=== PATIENT | female | born 1945 | race Caucasian/White ===

== ENCOUNTER → 2018-04-24 12:08 | Outpatient (CLI) | payer MEDICARE, SELFPAY ==
[2018-04-24 12:51] LABS: Add Manual Diff / Slide Review NO; Basophils Percent Auto 0.7 % (0-2); Eosinophils Percent Auto 1.3 % (2-4); Hematocrit 41.6 % (36-46); Hemoglobin 14.1 g/dL (12.0-16.0); Lymphocytes Percent Auto 19.5 % (25-40); Mean Corpuscular HGB Conc 33.9 % (30-36); Mean Corpuscular Hemoglobin 29.4 PG (26-34); Mean Corpuscular Volume 86.7 fL (80-100); Monocytes Percent Auto 4.2 % (3-14); Neutrophils Absolute Auto 7500 /uL (3000-5900); Neutrophils Percent Auto 74.3 % (50-75); Platelet Count 320 X10^3/uL (150-400); Red Blood Cell Count 4.79 X10^6/uL (4.0-5.2); Red Cell Distribution Width 14.2 % (11.6-14.8); White Blood Cell Count 10.1 X10^3/uL (4.5-11.0)
[2018-04-24 13:13] LABS: B Type Natriuretic Peptide < 100.0 (<100)
[2018-04-24 13:20] LABS: Alanine Aminotransferase 24 IU/L (9-52); Albumin 4.3 g/dL (3.5-5.0); Albumin Globulin Ratio 1.5 (1.0-2.8); Alkaline Phosphatase 67 U/L (38-126); Aspartate Aminotransferase 21 IU/L (14-36); BUN Creatinine Ratio 21.4 (6-22); Bilirubin Total 0.2 mg/dL (0.2-1.3); Blood Urea Nitrogen 15 mg/dL (7-17); Calcium 9.3 mg/dL (8.4-10.2); Carbon Dioxide 25 mmol/L (22-32); Chloride 104 mmol/L (98-107); Creatine Kinase 25 U/L (30-135); Estimated Glomerular Filt Rate > 60.0 mL/min (>60); Globulin 2.8 g/dL (1.7-4.1); Glucose 108 mg/dL (80-110); HEMOLYSIS < 15 (0-50); Lipase 224 U/L (23-300); Potassium 4.1 mmol/L (3.4-5.1); Sodium 141 mmol/L (137-145); Total Protein 7.1 g/dL (6.3-8.2)
[2018-04-24 13:34] LABS: Troponin I < 0.012 ng/mL (0.01-0.034)
[2018-04-24 14:02] LABS: TSH w/ Reflex to FT4 2.04 uIU/mL (0.47-4.68)
== END ==
PROVIDERS: Visit Provider Physician Assistant
DX: R10.9 Unspecified abdominal pain (principal)
CPT/HCPCS: 36415; 80053; 82550; 83690; 83880; 84443; 84484; 85025

== ENCOUNTER → 2018-05-16 09:03 | Outpatient (CLI) | payer MEDICARE, SELFPAY ==
[2018-05-16 10:21] LABS: Add Manual Diff / Slide Review NO; Basophils Percent Auto 0.8 % (0-2); Eosinophils Percent Auto 1.9 % (2-4); Hematocrit 44.1 % (36-46); Hemoglobin 14.5 g/dL (12.0-16.0); Lymphocytes Percent Auto 29.2 % (25-40); Mean Corpuscular HGB Conc 32.9 % (30-36); Mean Corpuscular Hemoglobin 28.9 PG (26-34); Mean Corpuscular Volume 87.8 fL (80-100); Monocytes Percent Auto 5.8 % (3-14); Neutrophils Absolute Auto 4300 /uL (3000-5900); Neutrophils Percent Auto 62.3 % (50-75); Platelet Count 265 X10^3/uL (150-400); Red Blood Cell Count 5.02 X10^6/uL (4.0-5.2); Red Cell Distribution Width 14.1 % (11.6-14.8); White Blood Cell Count 6.9 X10^3/uL (4.5-11.0)
[2018-05-16 10:56] LABS: Alanine Aminotransferase 24 IU/L (9-52); Albumin 4.3 g/dL (3.5-5.0); Albumin Globulin Ratio 1.6 (1.0-2.8); Alkaline Phosphatase 67 U/L (38-126); Aspartate Aminotransferase 19 IU/L (14-36); BUN Creatinine Ratio 21.4 (6-22); Bilirubin Total 0.5 mg/dL (0.2-1.3); Blood Urea Nitrogen 15 mg/dL (7-17); Calcium 9.7 mg/dL (8.4-10.2); Carbon Dioxide 27 mmol/L (22-32); Chloride 104 mmol/L (98-107); Cholesterol 224 mg/dL (140-199); Estimated Glomerular Filt Rate > 60.0 mL/min (>60); Globulin 2.7 g/dL (1.7-4.1); Glucose 96 mg/dL (80-110); HDL Cholesterol 79 mg/dL (40-60); HEMOLYSIS < 15 (0-50); LDL Cholesterol Calculated 126 mg/dL (<100); Lipase 212 U/L (23-300); Potassium 4.5 mmol/L (3.4-5.1); Sodium 144 mmol/L (137-145); Triglycerides 94 mg/dL (35-150)
== END ==
PROVIDERS: PCP Student in an Organized Health Care Education/Training Program; Visit Provider Internal Medicine Cardiovascular Disease
DX: R07.89 Other chest pain (principal)
CPT/HCPCS: 36415; 80053; 80061; 83690; 85025

== ENCOUNTER 2022-07-21 09:48 | Observation (INO) | payer MEDICARE, SELFPAY ==
[2022-07-21] VITALS (31 sets, daily range): BP systolic 143–206; BP diastolic 63–100; PULSE 76–97; RESP 15–43; TEMP 36.2–36.7; O2SAT 88–98; BMI 23.9; BMI 24.2
--- NOTE | 2022-07-21 09:58 | DI.RAD.S_ITS ---
PROCEDURE: XR CHEST 1V INDICATIONS: Shortness of breath TECHNIQUE: One view of the chest was acquired. COMPARISON: None. FINDINGS: Surgical changes and devices: None. Lungs and pleura: Interstitial pulmonary edema. Minimal right pleural effusion. Mediastinum: Mediastinal contours appear normal. Heart size is normal. Bones and chest wall: No suspicious bony lesions. Overlying soft tissues appear unremarkable. IMPRESSION: Congestive heart failure Dictated by: Simon Craig M.D. on 07/21/2022 at 10:44 Approved by: Simon Craig M.D. on 07/21/2022 at 10:44
[2022-07-21 10:12] LABS: Add Manual Diff / Slide Review NO; Basophils Absolute Auto 100 /uL (0-100); Basophils Percent Auto 0.8 % (0-2); Eosinophils Absolute Auto 100 /uL (0-450); Eosinophils Percent Auto 1.4 % (2-4); Hematocrit 40.8 % (36-46); Hemoglobin 13.1 g/dL (12.0-16.0); Lymphocytes Absolute Auto 1200 /uL (1100-4500); Lymphocytes Percent Auto 18.5 % (25-40); Mean Corpuscular HGB Conc 32.1 % (30-36); Mean Corpuscular Hemoglobin 27.6 PG (26-34); Mean Corpuscular Volume 86.2 fL (80-100); Monocytes Absolute Auto 400 /uL (0-900); Monocytes Percent Auto 6.7 % (3-14); Neutrophils Absolute Auto 4600 /uL (1500-7000); Neutrophils Percent Auto 72.6 % (50-75); Platelet Count 228 X10^3/uL (150-400); Red Blood Cell Count 4.74 X10^6/uL (4.0-5.2); Red Cell Distribution Width 14.1 % (11.6-14.8); White Blood Cell Count 6.3 X10^3/uL (4.5-11.0)
[2022-07-21 10:20] LABS: INR 1.1 (0.9-1.3); Prothrombin Time 12.5 SECONDS (10.1-12.7)
--- NOTE | 2022-07-21 10:22 | ED.SOB ---
HPI - SOB/Dyspnea General Chief Complaint: Shortness of Breath/Dyspnea Stated Complaint: trouble breathing getting worse T-2 Time Seen by Provider: 07/21/22 10:14 Source: patient Mode of arrival: Ambulatory Limitations: no limitations History of Present Illness HPI Narrative: Patient here with complains 3 months of dyspnea and getting worse. No exertional chest pain. Does have discomfort at times left long and then right long. Has had a dry cough. Patient smokes 3 cigarettes a day. Has history of childhood asthma. Has not seen Dr. De Leon, primary care in 5 years. Did not get into the office. Does not do breathing treatments. Does have exertional dyspnea. No fever no nausea vomiting or diarrhea. No prior history of heart attack strokes or diabetes. No history of congestive heart failure. Complains of limb edema or swelling but no weight gain Related Data Previous Rx's Medication Instructions Recorded aspirin 81 mg tablet,delayed 81 mg PO DAILY 30 days #30 tabs 07/22/22 release atorvastatin 40 mg tablet 40 mg PO BEDTIME 30 days #90 tabs 07/27/22 furosemide 20 mg tablet 20 mg PO BID #180 tabs 07/27/22 lisinopril 10 mg tablet 10 mg PO DAILY blood pressure #90 07/27/22 tabs metoprolol succinate 25 mg 25 mg PO DAILY #90 tabs 07/27/22 tablet,extended release 24 hr Allergies Allergy/AdvReac Type Severity Reaction Status Date / Time Penicillins [PENICILLINS] Allergy Unknown Verified 07/27/22 10:11 shellfish derived Allergy Unknown Verified 07/27/22 10:11 Review of Systems Review of Systems Narrative: GENERAL: negative chills, fatigue, malaise, fever, sweats. HEENT: negative sinus pain, ear pain, sore throat RESPIRATORY: Positive dyspnea, cough CARDIOVASCULAR: negative chest pain, palpitations GASTROINTESTINAL: negative nausea, vomiting, abdominal pain : negative dysuria, frequency, hematuria MUSCULOSKELETAL: negative muscle or bony pain SKIN: negative rash, skin lesions NEUROLOGIC: negative weakness, numbness ROS Unobtainable: All systems reviewed & are unremarkable except as noted in HPI and below Patient History Medical History (Updated 07/27/22 @ 11:09 by Haydee Guadarrama DO) Asthma Tobacco dependence Social History household members: spouse Smoking Status: Current every day smoker alcohol intake: current Smoking Status: Current every day smoker alcohol intake frequency: holidays/special occasions only Substance Use Type: does not use Exam Narrative Exam Narrative: GENERAL: in no distress, not toxic not dyspneic HEAD: Normocephalic. EYES: Pupils equal round ENT: Mucous membranes moist. NECK: Trachea midline. CARDIOVASCULAR: Regular rate and rhythm without murmurs RESPIRATORY: Speaking full sentences, no respiratory distress, there is diminished bilateral lung sounds with basilar rhonchi, no rales, no wheezing. GASTROINTESTINAL: Abdomen soft, non-tender EXTREMITIES: No gross deformities. No calf tenderness, there is 2+ bilateral ankle edema BACK: No flank tenderness. NEURO: AOx4. SKIN: Warm and dry PSYCH: Not anxious, is cooperative Initial Vital Signs Initial Vital Signs: Vital Signs Temperature 97.1 F L 07/21/22 09:52 Pulse Rate 97 H 07/21/22 09:52 Respiratory Rate 21 07/21/22 09:52 Blood Pressure 177/100 H 07/21/22 09:52 Pulse Oximetry 93 07/21/22 09:52 Oxygen Delivery Method 07/21/22 09:52 Course Orders Ordered: Discontinued Medications Acetaminophen (Acetaminophen 325 Mg Tablet) 650 mg PO Q6H PRN PRN Reason: Fever/Mild Pain (1-3) Albuterol/Ipratropium (Albuterol/Ipratropium 3 Ml Ampul) 3 ml INH NOW ONE Stop: 07/21/22 10:22 Last Admin: 07/21/22 10:24 Dose: 3 ml Documented By: DARYL Cyclobenzaprine HCl (Cyclobenzaprine 10 Mg Tablet) 10 mg PO Q8HR PRN PRN Reason: Spasms Enoxaparin Sodium (Enoxaparin 40 Mg/0.4 Ml Syringe) 40 mg SUBCUT DAILY [facility] Last Admin: 07/22/22 09:22 Dose: 40 mg Documented By: JASMINE Furosemide (Furosemide 40 Mg/4 Ml Vial) 40 mg IV NOW ONE Stop: 07/21/22 11:22 Last Admin: 07/21/22 11:49 Dose: 40 mg Documented By: DARYL Furosemide (Furosemide 40 Mg/4 Ml Vial) 40 mg IV NOW ONE Stop: 07/21/22 21:01 Last Admin: 07/21/22 20:59 Dose: 40 mg Documented By: Furosemide (Furosemide 40 Mg Tablet) 40 mg PO DAILY [facility] Furosemide (Furosemide 40 Mg/4 Ml Vial) 40 mg IV DAILY [facility] Last Admin: 07/22/22 09:22 Dose: 40 mg Documented By: JASMINE Lisinopril (Lisinopril 5 Mg Tablet) 5 mg PO DAILY [facility] Magnesium Chloride (Magnesium Chloride 64 Mg Tablet) 64 mg PO DAILY [facility] Last Admin: 07/22/22 10:48 Dose: 64 mg Documented By: JASMINE Magnesium Hydroxide (Magnesium Hydroxide 30 Ml Udc) 30 ml PO DAILY PRN PRN Reason: Constipation Methylprednisolone (Methylprednisolone 125 Mg/2 Ml Vial) 125 mg IV NOW ONE Stop: 07/21/22 10:22 Last Admin: 07/21/22 10:24 Dose: 125 mg Documented By: DARYL Metoprolol Succinate (Metoprolol Er 25 Mg Tablet) 25 mg PO DAILY [facility] Last Admin: 07/22/22 09:21 Dose: 25 mg Documented By: JASMINE Metoprolol Tartrate (Metoprolol Tartrate 5 Mg/5 Ml Inj) 5 mg IV Q15M PRN PRN Reason: Hypertension Stop: 07/21/22 21:31 Naloxone HCl (Naloxone 0.4 Mg/Ml Vial) 0.2 mg IV Q2MIN PRN PRN Reason: Opiate Reversal Nicotine (Nicotine 7 Mg Patch) 7 mg TOP DAILY PRN PRN Reason: nicotine withdrawal Potassium Chlor[facility] (Potassium [facility] 20 M[facility] Tab) [facility] Last Admin: 07/22/22 10:45 Dose: 20 meq Documented By: JASMINE Prednisone (Prednisone 20 Mg Tablet) 40 mg PO DAILY [facility] Stop: 07/26/22 08:59 Last Admin: 07/22/22 09:21 Dose: 40 mg Documented By: JASMINE Vital Signs Vital signs: Vital Signs - 8 hr 07/21/22 09:52 07/21/22 09:54 07/21/22 09:56 Temperature 97.1 F L Pulse Rate 97 H 96 H Respiratory Rate 21 28 H Blood Pressure 177/100 H Pulse Oximetry 93 89 L 93 Oxygen Delivery Method Room Air Room Air Room Air 07/21/22 09:56 07/21/22 10:00 07/21/22 10:05 Temperature Pulse Rate 92 H 86 Respiratory Rate 15 16 Blood Pressure 177/100 H Pulse Oximetry 97 98 Oxygen Delivery Method 07/21/22 10:05 07/21/22 10:15 07/21/22 10:24 Temperature Pulse Rate 83 80 Respiratory Rate 28 H 20 Blood Pressure 206/86 H Pulse Oximetry 98 95 Oxygen Delivery Method Room Air Room Air 07/21/22 10:30 07/21/22 10:30 07/21/22 10:45 Temperature Pulse Rate 83 79 Respiratory Rate 37 H 23 Blood Pressure 188/84 H Pulse Oximetry 97 96 Oxygen Delivery Method 07/21/22 11:00 07/21/22 11:00 07/21/22 11:15 Temperature Pulse Rate 77 76 Respiratory Rate 26 H 23 Blood Pressure 172/74 H Pulse Oximetry 94 94 Oxygen Delivery Method 07/21/22 11:30 07/21/22 11:30 07/21/22 11:45 Temperature Pulse Rate 84 82 Respiratory Rate 29 H 23 Blood Pressure 182/84 H Pulse Oximetry 96 96 Oxygen Delivery Method Room Air 07/21/22 12:00 07/21/22 12:00 07/21/22 12:15 Temperature Pulse Rate 83 86 Respiratory Rate 34 H 22 Blood Pressure 175/81 H Pulse Oximetry 95 94 Oxygen Delivery Method 07/21/22 12:30 07/21/22 12:30 07/21/22 12:45 Temperature Pulse Rate 86 86 Respiratory Rate 43 H 20 Blood Pressure 177/80 H Pulse Oximetry 95 95 Oxygen Delivery Method Room Air 07/21/22 13:00 07/21/22 13:00 07/21/22 13:15 Temperature Pulse Rate 86 85 Respiratory Rate Blood Pressure 194/79 H Pulse Oximetry 93 92 Oxygen Delivery Method 07/21/22 13:16 07/21/22 13:16 07/21/22 13:30 Temperature Pulse Rate 86 Respiratory Rate Blood Pressure 183/72 H 152/70 H Pulse Oximetry 92 Oxygen Delivery Method 07/21/22 13:30 Temperature Pulse Rate 83 Respiratory Rate 26 H Blood Pressure Pulse Oximetry 91 Oxygen Delivery Method MDM - SOB/Dyspnea Lab Data 07/21/22 10:00 07/21/22 10:00 Labs: Lab Results 07/21/22 07/21/22 07/21/22 Range/Units 09:58 10:00 10:00 WBC 6.3 (4.5-11.0) X10^3/uL RBC 4.74 (4.0-5.2) X10^6/uL Hgb 13.1 (12.0-16.0) g/dL Hct 40.8 (36-46) % MCV 86.2 (80-100) fL MCH 27.6 (26-34) PG MCHC 32.1 (30-36) % RDW 14.1 (11.6-14.8) % Plt Count 228 (150-400) X10^3/uL Neut % (Auto) 72.6 (50-75) % Lymph % (Auto) 18.5 L (25-40) % [place] % (Auto) 6.7 (3-14) % Eos % (Auto) 1.4 L (2-4) % Baso % (Auto) 0.8 (0-2) % Neut # (Auto) 4600 (0283-0719) /uL Lymph # (Auto) 1200 (1123-9522) /uL [place] # (Auto) 400 (0-900) /uL Eos # (Auto) 100 (0-450) /uL Baso # (Auto) 100 (0-100) /uL PT 12.5 (10.1-12.7) SECONDS INR 1.1 (0.9-1.3) Sodium (137-145) mmol/L Potassium (3.4-5.1) mmol/L Chloride (98-107) mmol/L Carbon Dioxide (22-32) mmol/L BUN (7-17) mg/dL Creatinine (0.52-1.04) mg/dL Estimated GFR (>60) mL/min BUN/Creatinine Ratio (6-22) Glucose (80-110) mg/dL Lactate (0.7-2.1) mmol/L Calcium (8.4-10.2) mg/dL Total Bilirubin (0.2-1.3) mg/dL AST (14-36) IU/L ALT (<35) IU/L Alkaline Phosphatase (38-126) U/L Troponin I (0.01-0.034) ng/mL NT-Pro-B Natriuret Pep (<450) pg/mL Total Protein (6.3-8.2) g/dL Albumin (3.5-5.0) g/dL Globulin (1.7-4.1) g/dL Albumin/Globulin Ratio (1.0-2.8) SARS-CoV-2 (PCR) Negative (Negative) Influenza A (RT-PCR) Flu a negative (NEGATIVE) Influenza B (RT-PCR) Flu b negative (NEGATIVE) RSV (PCR) Negative (Negative) 07/21/22 07/21/22 07/21/22 Range/Units 10:00 10:00 12:30 WBC (4.5-11.0) X10^3/uL RBC (4.0-5.2) X10^6/uL Hgb (12.0-16.0) g/dL Hct (36-46) % MCV (80-100) fL MCH (26-34) PG MCHC (30-36) % RDW (11.6-14.8) % Plt Count (150-400) X10^3/uL Neut % (Auto) (50-75) % Lymph % (Auto) (25-40) % [place] % (Auto) (3-14) % Eos % (Auto) (2-4) % Baso % (Auto) (0-2) % Neut # (Auto) (6719-5076) /uL Lymph # (Auto) (6843-2490) /uL [place] # (Auto) (0-900) /uL Eos # (Auto) (0-450) /uL Baso # (Auto) (0-100) /uL PT (10.1-12.7) SECONDS INR (0.9-1.3) Sodium 138 (137-145) mmol/L Potassium 4.3 (3.4-5.1) mmol/L Chloride 100 (98-107) mmol/L Carbon Dioxide 29 (22-32) mmol/L BUN 18 H (7-17) mg/dL Creatinine 0.85 (0.52-1.04) mg/dL Estimated GFR > 60 (>60) mL/min BUN/Creatinine Ratio 21.2 (6-22) Glucose 101 (80-110) mg/dL Lactate 2.3 H 2.0 (0.7-2.1) mmol/L Calcium 8.7 (8.4-10.2) mg/dL Total Bilirubin 0.6 (0.2-1.3) mg/dL AST 26 (14-36) IU/L ALT 24 (<35) IU/L Alkaline Phosphatase 80 (38-126) U/L Troponin I 0.014 (0.01-0.034) ng/mL NT-Pro-B Natriuret Pep 1296 H (<450) pg/mL Total Protein 7.4 (6.3-8.2) g/dL Albumin 4.1 (3.5-5.0) g/dL Globulin 3.3 (1.7-4.1) g/dL Albumin/Globulin Ratio 1.2 (1.0-2.8) SARS-CoV-2 (PCR) (Negative) Influenza A (RT-PCR) (NEGATIVE) Influenza B (RT-PCR) (NEGATIVE) RSV (PCR) (Negative) MDM Narrative Medical decision making narrative: Patient here with complains 3 months of dyspnea and getting worse. No exertional chest pain. Does have discomfort at times left long and then right long. Has had a dry cough. Patient smokes 3 cigarettes a day. Has history of childhood asthma. Has not seen Dr. De Leon, primary care in 5 years. Did not get into the office. Does not do breathing treatments. Does have exertional dyspnea. No fever no nausea vomiting or diarrhea. No prior history of heart attack strokes or diabetes. No history of congestive heart failure. Complaints of limb edema but no weight gain [facility] CC: Dyspnea Complicating co-morbidities: Smoker Data collected from: Patient and spouse Medical records reviewed: No previous visits for COPD exacerbation or dyspnea Differential considered: Includes but not limited to dyspnea/COPD/pneumonia/viral infection/CHF exacerbation/CA/non-STEMI Exam documented above, pertinent findings include: Diminished lung sounds/rhonchi Lab Test results independently reviewed as above. Pertinent findings: CBC no leukocytosis or anemia, troponin normal, BNP normal, sodium 138 AST 26 ALT 24 potassium 4.3 Independently reviewed EKG as above normal sinus rhythm rate [address] elevation or depression Imaging studies independently reviewed: Chest x-ray no acute process Consultations: 11:30 a.m., spoke with hospitalist agree for admit Treatments: DuoNeb/Solu-Medrol Lasix Re-evaluations: Reviewed results with patient and . No significant improvement with breathing treatment. Reviewed diagnosis likely CHF and they do agree for admit Discussion: Appropriate for admission for new onset CHF, requiring diuresis, patient is symptomatic. Reviewed with patient and agree for admit. Reviewed with hospitalist agree for admit. Diagnosis: New onset CHF Discharge Plan Departure Patient Disposition: Admitted as Observation Clinical Impression: New onset of congestive heart failure Admit Date/Time: 07/21/22 14:08 Admit Provider: José Luis Grijalva
[2022-07-21] MEDS: methylPREDNISolone 125 MG/2 ML VIAL IV (10:24)
[2022-07-21] MEDS: ALBUTEROL/IPRATROPIUM 3 ML AMPUL INH (10:24)
[2022-07-21 10:25] LABS: Alanine Aminotransferase 24 IU/L (<35); Albumin 4.1 g/dL (3.5-5.0); Albumin Globulin Ratio 1.2 (1.0-2.8); Alkaline Phosphatase 80 U/L (38-126); Aspartate Aminotransferase 26 IU/L (14-36); BUN Creatinine Ratio 21.2 (6-22); Bilirubin Total 0.6 mg/dL (0.2-1.3); Blood Urea Nitrogen 18 mg/dL (7-17); Calcium 8.7 mg/dL (8.4-10.2); Carbon Dioxide 29 mmol/L (22-32); Chloride 100 mmol/L (98-107); Estimated Glomerular Filt Rate > 60 mL/min (>60); Globulin 3.3 g/dL (1.7-4.1); Glucose 101 mg/dL (80-110); HEMOLYSIS < 15 (0-50); Potassium 4.3 mmol/L (3.4-5.1); Sodium 138 mmol/L (137-145); Total Protein 7.4 g/dL (6.3-8.2)
[2022-07-21 10:26] LABS: Lactate (Lactic Acid) 2.3 mmol/L (0.7-2.1)
[2022-07-21 10:37] LABS: NT-proBNP (BNP-Adult 18+) 9090 pg/mL (<450); Troponin I 0.014 ng/mL (0.01-0.034)
--- NOTE | 2022-07-21 10:41 | RT ---
pt [place] tx well, no distress noted and on room air.
[2022-07-21 10:42] LABS: Influenza A - CEPHEID Flu A NEGATIVE (NEGATIVE); Influenza B - CEPHEID Flu B NEGATIVE (NEGATIVE); Respiratory Syncytial Virus Negative (Negative)
[2022-07-21 10:44] LABS: COVID-19 CEPHEID 4-PLEX PCR Negative (Negative)
[2022-07-21] MEDS: FUROSEMIDE 40 MG/4 ML VIAL IV ×2 (11:49→20:59)
[2022-07-21 12:07] LABS: Reflexed Lactate in 2 Hours Y
--- NOTE | 2022-07-21 12:55 | DI.ECHO.S_ITS ---
[facility]---------+ [facility] +---------+ : : [address] : : : : [id number] : : : : Phone: [phone]+ Echocardiogram Report + + :Name: MAURI CORCORAN Study Date: 07/21/2022 Height: 63 in : :[facility] ReadingLocation: Weight: 135 lb : : Gender: Female BSA: 1.6 m2 : :: 1945 Age: 77 yrs BP: 165/72 mmHg: :Reason For Study: SHORTNESS OF BREATH : :Ordering Physician: YASMANY, : :BIMAL Performed By: Suzy Garduno : :Referring: BIMAL JADE : + + Interpretation Summary There is mild-moderate concentric left ventricular hypertrophy. The ejection fraction is estimated to be 25-30%. Grade II diastolic dysfunction. The left atrium is moderately dilated. The right ventricle is normal in size and function. No significant valvular abnormalities. Unable to estimate PASP. The ascending aorta is mildly enlarged, 3.9 cm. Borderline dilated abdominal aorta, 2.8 cm. Procedure: A two-dimensional transthoracic echocardiogram with color flow and Doppler was performed. The study quality was technically adequate. There is no prior echocardiogram noted for this patient. The patient was in sinus rhythm with heart rates between 79-87 bpm during the exam. Left Ventricle: The left ventricle is normal in size. There is mild-moderate concentric left ventricular hypertrophy. The ejection fraction is estimated to be 25-30%. Diastolic parameters suggest a pseudonormalization pattern, consistent with probable elevated filling pressures. Right Ventricle: The right ventricle is normal in size and function. Atria: The left atrium is moderately dilated. Right atrial size is normal. There is no Doppler evidence for an interatrial shunt. Mitral Valve: The mitral valve is normal. There is mild mitral annular calcification. There is trace mitral regurgitation. Aortic Valve: The aortic valve is trileaflet. The aortic valve opens well. There is no aortic valve stenosis. No aortic regurgitation is present. Tricuspid Valve: The tricuspid valve is normal in structure and function. There is a trace or physiologic amount of tricuspid regurgitation. Pulmonary artery pressures cannot be estimated because of the lack of a measurable TR jet velocity. Pulmonic Valve: The pulmonic valve leaflets are thin and pliable; valve motion is normal. There is mild pulmonic regurgitation. Great Vessels: The aortic root is normal size. The ascending aorta is mildly enlarged. Borderline dilated abdominal aorta. The inferior vena cava was not well visualized. Pericardium/ Pleura There is no pericardial effusion. There is no pleural effusion. MMode/2D Measurements & Calculations LVIDd: 4.5 cm LVOT diam: 2.0 cm LVIDs: 4.0 cm Ao root diam: 2.8 cm FS: 11.6 % asc Aorta Diam: 3.9 cm EPSS: 1.6 cm IVSd: 1.2 cm LVPWd: 1.3 cm LV bolton. diameter/BSA (cm/m^2): 2.8 LV sys. diameter/BSA (cm/m^2): 2.5 LA A2 area: 20.6 cm2 RA long axis: 4.5 cm LA A4 area: 22.4 cm2 RA area: 13.2 cm2 LA length (vol): 5.3 cm RA vol: 33.0 ml LA vol: 74.2 ml RA : 20.2 ml/m2 LA vol index: 45.4 ml/m2 IVC diam: 1.4 cm RVD1 (basal): 3.9 cm RVD2 (mid): 2.9 cm TAPSE: 2.2 cm Doppler Measurements & Calculations Ao V2 max: 109.5 cm/sec LVOT Max Theodore: 77.0 cm/sec Ao V2 mean: 76.4 cm/sec LV V1 max P.4 mmHg Ao max P.8 mmHg LV V1 VTI: 15.0 cm Ao mean P.6 mmHg CHONG(I,D): 2.1 cm2 Ao V2 VTI: 22.1 cm CHONG(V,D): 2.2 cm2 sev ratio: 0.68 CHONG indexed to BSA (cm^2/m^2): 1.3 MV E max theodore: 58.3 cm/sec PA V2 max: 73.1 cm/sec MV A max theodore: 108.4 cm/sec PA V2 mean: 48.1 cm/sec MV E/A: 0.54 PA mean P.1 mmHg Med Peak E' Theodore: 2.7 cm/sec PA pr(Accel): 37.9 mmHg E/E' med: 21.8 Lat Peak E' Theodore: 3.8 cm/sec E/E' lat: 15.4 E/e' average: 18.6 MV dec time: 0.20 sec [facility] 46.5 ml Reading Physician:03:58 PM
--- NOTE | 2022-07-21 14:30 | PM.HP.1 ---
History of Present Illness History of Present Illness Date Patient Seen: 07/21/22 Time Patient Seen: 14:00 Chief complaint: trouble breathing getting worse T-2 Narrative: Patient is 77-year-old female with history of asthma, long-term cigarette smoking presented to ED due to worsening dyspnea on exertion. Symptoms have been present for at least 6 months. She has progressive dyspnea to point where she now is out of breath walking a few feet. Notes loss of appetite. She has also noticed swelling in her ankles and sleeps with her head elevated. Denies recent chest pain. Back in 2018 she had a dobutamine echo stress test for evaluation of chest pains which patient states was normal. Patient is not aware of past history of elevated blood pressure. On ED presentation, her initial BP was 177 over 100, repeat BP 206/86, O2 sat 89-93% room air. BNP 9090, normal troponin. EKG personally reviewed and showed showed sinus rhythm, possible septal MN. chest x-ray personally reviewed and shows bilateral interstitial edema with small right pleural effusion. Patient has family history CAD. Paternal grandfather of MN in mid 70s. Father 74 of cardiovascular cause. Brother has had multiple coronary stents in his 60s. Patient has smoked 1/2 pack per day for close to 60 years, cut back to 3 cigarettes a day in the last 5 years. Patient History Medical History (Updated 07/21/22 @ 11:27 by Yon Kwon MD) Asthma Family & Social History Safety & Behavioral: Feels Safe in Current Yes Environment Been Physically Hurt or No Threatened By a Person Tobacco & Substance use: Smoking Status Current every day smoker alcohol intake frequency holiday/special occasion Substance Use Type does not use Meds Home Medications and Allergies Home Medications Medication Instructions Recorded Confirmed Type No Known Home Medications 07/21/22 07/21/22 History Allergies Allergy/AdvReac Type Severity Reaction Status Date / Time Penicillins [PENICILLINS] Allergy Unknown Verified 07/21/22 09:59 shellfish derived Allergy Unknown Verified 07/21/22 10:32 Review of Systems Review of Systems Narrative: Complete ROS otherwise negative Exam Vital Signs (past 8 hours): - 07/21/22 09:52 07/21/22 09:54 07/21/22 09:56 Temperature 97.1 F L Pulse Rate 97 H 96 H Respiratory Rate 21 28 H Blood Pressure 177/100 H Pulse Oximetry 93 89 L 93 Oxygen Delivery Method Room Air Room Air Room Air 07/21/22 09:56 07/21/22 10:00 07/21/22 10:05 Temperature Pulse Rate 92 H 86 Respiratory Rate 15 16 Blood Pressure 177/100 H Pulse Oximetry 97 98 Oxygen Delivery Method 07/21/22 10:05 07/21/22 10:15 07/21/22 10:24 Temperature Pulse Rate 83 80 Respiratory Rate 28 H 20 Blood Pressure 206/86 H Pulse Oximetry 98 95 Oxygen Delivery Method Room Air Room Air 07/21/22 10:30 07/21/22 10:30 07/21/22 10:45 Temperature Pulse Rate 83 79 Respiratory Rate 37 H 23 Blood Pressure 188/84 H Pulse Oximetry 97 96 Oxygen Delivery Method 07/21/22 11:00 07/21/22 11:00 07/21/22 11:15 Temperature Pulse Rate 77 76 Respiratory Rate 26 H 23 Blood Pressure 172/74 H Pulse Oximetry 94 94 Oxygen Delivery Method 07/21/22 11:30 07/21/22 11:30 07/21/22 11:45 Temperature Pulse Rate 84 82 Respiratory Rate 29 H 23 Blood Pressure 182/84 H Pulse Oximetry 96 96 Oxygen Delivery Method Room Air 07/21/22 12:00 07/21/22 12:00 07/21/22 12:15 Temperature Pulse Rate 83 86 Respiratory Rate 34 H 22 Blood Pressure 175/81 H Pulse Oximetry 95 94 Oxygen Delivery Method 07/21/22 12:30 07/21/22 12:30 07/21/22 12:45 Temperature Pulse Rate 86 86 Respiratory Rate 43 H 20 Blood Pressure 177/80 H Pulse Oximetry 95 95 Oxygen Delivery Method Room Air 07/21/22 13:00 07/21/22 13:00 07/21/22 13:15 Temperature Pulse Rate 86 85 Respiratory Rate Blood Pressure 194/79 H Pulse Oximetry 93 92 Oxygen Delivery Method 07/21/22 13:16 07/21/22 13:16 07/21/22 13:30 Temperature Pulse Rate 86 Respiratory Rate Blood Pressure 183/72 H 152/70 H Pulse Oximetry 92 Oxygen Delivery Method 07/21/22 13:30 Temperature Pulse Rate 83 Respiratory Rate 26 H Blood Pressure Pulse Oximetry 91 Oxygen Delivery Method Oxygen Delivery Method Room Air Narrative Exam Narrative: General: Alert very pleasant female not tachypneic at rest after IV Lasix diuresis HEENT: Pupils equal Neck: No lymphadenopathy Lungs: Clear to auscultation Heart: Normal S1 and S2, regular rate and rhythm, no murmur Abdomen: Soft, nontender, no HSM Extremities: 1+ pitting pretibial and ankles Neuro: Affect normal/calm, speech normal Objective Labs 07/21/22 10:00 07/21/22 10:00 Labs: Laboratory Results - last 24 hr 07/21/22 07/21/22 07/21/22 09:58 10:00 10:00 WBC 6.3 RBC 4.74 Hgb 13.1 Hct 40.8 MCV 86.2 MCH 27.6 MCHC 32.1 RDW 14.1 Plt Count 228 Neut % (Auto) 72.6 Lymph % (Auto) 18.5 L [place] % (Auto) 6.7 Eos % (Auto) 1.4 L Baso % (Auto) 0.8 Neut # (Auto) 4600 Lymph # (Auto) 1200 [place] # (Auto) 400 Eos # (Auto) 100 Baso # (Auto) 100 PT 12.5 INR 1.1 Sodium Potassium Chloride Carbon Dioxide BUN Creatinine Estimated GFR BUN/Creatinine Ratio Glucose Lactate Calcium Total Bilirubin AST ALT Alkaline Phosphatase Troponin I NT-Pro-B Natriuret Pep Total Protein Albumin Globulin Albumin/Globulin Ratio SARS-CoV-2 (PCR) Negative Influenza A (RT-PCR) Flu a negative Influenza B (RT-PCR) Flu b negative RSV (PCR) Negative 07/21/22 07/21/22 07/21/22 10:00 10:00 12:30 WBC RBC Hgb Hct MCV MCH MCHC RDW Plt Count Neut % (Auto) Lymph % (Auto) Taylor % (Auto) Eos % (Auto) Baso % (Auto) Neut # (Auto) Lymph # (Auto) [place] # (Auto) Eos # (Auto) Baso # (Auto) PT INR Sodium 138 Potassium 4.3 Chloride 100 Carbon Dioxide 29 BUN 18 H Creatinine 0.85 Estimated GFR > 60 BUN/Creatinine Ratio 21.2 Glucose 101 Lactate 2.3 H 2.0 Calcium 8.7 Total Bilirubin 0.6 AST 26 ALT 24 Alkaline Phosphatase 80 Troponin I 0.014 NT-Pro-B Natriuret Pep 9090 H Total Protein 7.4 Albumin 4.1 Globulin 3.3 Albumin/Globulin Ratio 1.2 SARS-CoV-2 (PCR) Influenza A (RT-PCR) Influenza B (RT-PCR) RSV (PCR) Assessment & Plan Assessment & Plan narrative: 1. Congestive heart failure, subacute onset, new diagnosis -patient presents with [place], edema, elevated BNP, chest x-ray consistent with CHF -significantly hypertensive likely due to volume overload -had normal dobutamine echo stress test in 2018 -received Lasix 40 mg IV in ED with diuresis and improvement in dyspnea -ordered additional Lasix 40 mg IV for this evening -in a.m. start Lasix 40 mg p.o. daily -echo -tele -BMP in a.m. 2. Cigarette dependency -encouraged to completely quit smoking 3. History of asthma -no wheezing or other indication of asthma exacerbation -patient did get Solu-Medrol in ED DVT prophylaxis: Lovenox Surrogate decision maker: Spouse Code status: DNR, patient has clearly stated wishes Time Spent With Patient Critical Care time: I spent a total of [] minutes of critical care time on this patient's care today; this time is exclusive of procedural time.
--- NOTE | 2022-07-21 15:19 | PC.NURSE ---
Unable to contact Dr Overton on hospitalist office phone,sent message via cell phone Message left for Dr Grijalva about pts O2 dropping to 88% RA,pt placed on 2L O2
--- NOTE | 2022-07-21 16:24 | PC.NURSE ---
Pt to room 216 via stretcher. Pt transferred to bed via sba. Pt denies falls but states she is unsteady at times. States she is a DNR. Pt placed on 2L O2. Oriented Pt to room, call light, tv controls, bed controls, and bed alarm on for safety and Pt is aware she must call for assistance before getting out of bed. Pt denies needs at this time and agrees to call for assistance as needed.
--- NOTE | 2022-07-21 17:49 | CM.IDA ---
Initial DCP Assessment Patient is 77 y/o female who presents to ED de to concern for SOB over the last 3 months. Patient's PCP is Dr. Jerry Goel, but patient has not been to PCP since 2018, Patient has Medicare insurance. Patient dx in ED with new onset of CHF. Patient has hx of right interal carotid occlusion. MBA INTERN enters room to meet with patient. Patient presents as A/Ox4. Patient endorses she resides on [facility] with spouse. She reports that spouse was visiting patient earlier but she let him go home to rest. Patient endorses independence with ADLs and states that her drives as needed. Patient endorses she has not been to PCP because she did not have a need, patient endorses she doesn't get sick often. MBA INTERN offers to schedule PCP f/u with patient and patient endorses she can do so herself. Patient endorses she has three supportive children, two of which that live nearby in [place] and [facility]. Patient denies any DCP needs at this time. Patient has been accepted by hospitalist for acute care, patient has ECHO scheduled this afternoon. Plan: DCP to f/u with POC, no DCP needs at this time. Patient admitted observational due to CHF onset. CHRISTEL Perry Discharge Planning/Care Management CM Discharge Assessment Start: 07/21/22 16:28 Freq: Status: Active Protocol: Document 07/21/22 16:29 LN (Rec: 07/21/22 17:48 LN [id number]) Discharge Planning Assessment Assigned Airline Flight Attendant CHRISTEL Dennis Advance Directives? Yes Advance Directives on File No History Provided By Patient,Medical Record Has Patient been admitted in last 30 No days? Prior Living Arrangements House Household Members spouse Type of transporation used prior to Relies on Others admit Comment Patient reports that her drives Independent with ADL's Yes Is patient alert and oriented? Yes Referrals Initiated None needed Please Provide Date Initial DC 07/21/22 Assessment Was Performed
[2022-07-22 00:10] VITALS: BP 152/83; PULSE 89; RESP 18; TEMP 36.2; O2SAT 96
[2022-07-22 05:04] VITALS: BP 154/69; PULSE 84; RESP 18; TEMP 36.1; O2SAT 96
[2022-07-22 06:50] LABS: BUN Creatinine Ratio 22.9 (6-22); Blood Urea Nitrogen 27 mg/dL (7-17); Calcium 8.7 mg/dL (8.4-10.2); Carbon Dioxide 33 mmol/L (22-32); Chloride 93 mmol/L (98-107); Estimated Glomerular Filt Rate 47 mL/min (>60); Glucose 97 mg/dL (80-110); HEMOLYSIS < 15 (0-50); Potassium 3.6 mmol/L (3.4-5.1); Sodium 136 mmol/L (137-145)
[2022-07-22 09:00] VITALS: BP 162/74; PULSE 75; RESP 17; TEMP 36.2; O2SAT 98
[2022-07-22 09:21] VITALS: BP 162/74; PULSE 75
[2022-07-22] MEDS: predniSONE 20 MG TABLET 40 MG PO (09:21)
[2022-07-22] MEDS: METOPROLOL ER 25 MG TABLET PO (09:21)
[2022-07-22] MEDS: ENOXAPARIN 40 MG/0.4 ML SYRINGE SUBCUT (09:22)
[2022-07-22] MEDS: FUROSEMIDE 40 MG/4 ML VIAL IV (09:22)
[2022-07-22] MEDS: POTASSIUM CHLORIDE 20 MEQ TAB PO (10:45)
[2022-07-22] MEDS: MAGNESIUM CHLORIDE 64 MG TABLET PO (10:48)
--- NOTE | 2022-07-22 12:03 | PM.DS.1 ---
History of Present Illness History of Present Illness Date Patient Seen: 07/22/22 Chief complaint: trouble breathing getting worse T-2 Narrative: Per admitting provider, Patient is 77-year-old female with history of asthma, long-term cigarette smoking presented to ED due to worsening dyspnea on exertion. Symptoms have been present for at least 6 months. She has progressive dyspnea to point where she now is out of breath walking a few feet. Notes loss of appetite. She has also noticed swelling in her ankles and sleeps with her head elevated. Denies recent chest pain. Back in 2018 she had a dobutamine echo stress test for evaluation of chest pains which patient states was normal. Patient is not aware of past history of elevated blood pressure. On ED presentation, her initial BP was 177 over 100, repeat BP 206/86, O2 sat 89-93% room air. BNP 9090, normal troponin. EKG personally reviewed and showed showed sinus rhythm, possible septal DC. chest x-ray personally reviewed and shows bilateral interstitial edema with small right pleural effusion. Patient has family history CAD. Paternal grandfather of DC in mid 70s. Father 74 of cardiovascular cause. Brother has had multiple coronary stents in his 60s. Patient has smoked 1/2 pack per day for close to 60 years, cut back to 3 cigarettes a day in the last 5 years. Discharge Providers Provider Date of admission: 07/21/22 14:08 Discharge Date: 07/22/22 Primary care physician: Jerry Goel MD Discharge provider: Abraham Lawson DO Summary Hospital Course Discharge Diagnosis: 1. Congestive heart failure, subacute onset, new diagnosis, combined systolic and diastolic 2.? Tobacco use 3.? History of asthma 4. HAMILTON 5. HTN Hospital Course: This is a 77 year old female admitted with presumed heart failure based on presenting symptoms. Echocardiogram revealed an EF of 20-25% with grade II diastolic dysfunction as well. Her symptoms improved with diuresis but she developed mild worsening of her creatinine and elevated BUN suggestive of over diuresis. She was changed to oral furosemide and will discharge on 20 mg of furosemide daily. She was feeling much improved and wished to go home. Only with mild HAMILTON with creatinine of 1.1. She was counseled on BP monitoring, diet, fluid restrictions, and weight monitoring at home. Repeat BMP was ordered for 3 days from discharge to reassess kidney function (creatinine) with decrease in furosemide. As a result of her creatinine increasing mildly stella-inhibition was not able to be initiated prior to discharge, but is recommended as an outpatient as soon as possible with her primary care provider. She was started on beta lexx therapy. She should follow up with PCP for cardiology referral as soon as possible and continued medication adjustments / optimization. Given some wall motion abnormalities seen on echo (with normal cardiac enzymes and no chest pain) she was prescribed aspirin and statin for possible ischemic disease until she can follow up with caridology. Time Spent with Patient Time spent: Greater than 30 minutes Exam Vital Signs (past 8 hours): - 07/22/22 05:04 07/22/22 06:50 07/22/22 09:00 Temperature 97.0 F L 97.1 F L Pulse Rate 84 75 Respiratory Rate 18 17 Blood Pressure 154/69 H 162/74 H Pulse Oximetry 96 98 Oxygen Delivery Method Nasal Cannula Oxygen Flow Rate 2 2 2 07/22/22 09:21 Temperature Pulse Rate 75 Respiratory Rate Blood Pressure 162/74 H Pulse Oximetry Oxygen Delivery Method Oxygen Flow Rate Oxygen Delivery Method Nasal Cannula Oxygen Flow Rate 2 Narrative Exam Narrative: General: Alert very pleasant female not tachypneic at rest after IV Lasix diuresis HEENT: Pupils equal Neck: No lymphadenopathy Lungs: Clear to auscultation Heart: Normal S1 and S2, regular rate and rhythm, no murmur Abdomen: Soft, nontender, no HSM Extremities: 1+ pitting pretibial and ankles Neuro: Affect normal/calm, speech normal Objective Labs 07/21/22 10:00 07/22/22 05:06 Labs: Laboratory Results - last 24 hr 07/21/22 07/22/22 07/22/22 12:30 05:06 05:06 Sodium 136 L Potassium 3.6 Chloride 93 L Carbon Dioxide 33 H BUN 27 H Creatinine 1.18 H Estimated GFR 47 L BUN/Creatinine Ratio 22.9 H Glucose 97 Lactate 2.0 Calcium 8.7 TSH 1.60 PFSH Medical History (Updated 07/21/22 @ 11:27 by Yon Kwon MD) Asthma Social History household members: spouse Smoking Status: Current every day smoker alcohol intake: current Discharge Plan Discharge Plan Patient Disposition: Home Provider Discharge Comment: You were admitted to the hospital with shortness of breath, your heart function was reduced leading to your symptoms. Follow up with cardiology is recommended. Labs ordered for Monday to recheck kidney function. Follow up with PCP ideally next week to check on symptoms, labs, and possible adjustment of medications. Discharge orders & Medications Prescriptions: New metoprolol succinate 25 mg Tablet Extended Release 24 Hr 25 mg PO DAILY 30 Days Qty: 30 0RF aspirin 81 mg tablet,delayed release (DR/EC) 81 mg PO DAILY 30 Days Qty: 30 0RF atorvastatin 40 mg tablet 40 mg PO BEDTIME 30 Days Qty: 30 0RF furosemide 20 mg tablet 20 mg PO DAILY 30 Days Qty: 30 0RF Follow up/Referrals: eJrry Goel MD [Primary Care Provider] - 1 Week (*Appt on ) Other Ambulatory Orders: Basic Metabolic Panel (Routine) Timeframe: 3 Days Facility: [facility] - Location: Laboratory Ordered By: Abraham Lawson Diet/Activity/Treatments Diet: Diet as Tolerated and Low-sodium Diet comment: Limit fluid intake to 1.5 L a day, or about 48 oz. Activity: As tolerated Visit Report/Discharge Packet Instructions: Heart Failure, DI for Heart Failure, How to Keep Track of Your Weight When You Have Heart Failure, Heart Failure: When to Call for Help, Heart Failure: Salt and Fluids, Physical Activity for People with Heart Failure Stand Alone Forms: Patient Portal/API, Stroke Signs & Symptoms Discharge Data Primary Care Provider: Jerry Goel Attending Provider: José Luis Grijalva VTE Deep Vein Thrombosis/Pulmonary Embolism Present on Admission: No MIPS - DC The patient has a history of heart transplant or Left Ventricular Assist Device (LVAD). If yes, STOP here.: No The patient has current or prior documentation of left ventricular ejection fraction (LVEF) less than or equal to 40%, or moderate or severely depressed left ventricular systolic function.: Yes A. The patient was prescribed or already taking an Angiotensin-Converting Enzyme (STELLA) Inhibitor, or Angiotensin Receptor Lexx (ARB).: No B. The patient was prescribed or already taking a beta-lexx. [If Yes to Both A & B, STOP here]: Yes Patient not prescribed/taking STELLA or ARB for medical/patient reason(s) including (ex: allergy, intolerance, contraindication).: yes, HAMILTON
--- NOTE | 2022-07-22 14:52 | PC.NURSE ---
Pt is A&Ox3 but extremely hard of hearing. She is initially on 2 LNC, but weaned to RA and tolerating well. Per patient and family at bedside, she has a significant reduction to B Feet and ankle swelling down to +1 non pittng.She is complaining of cramping pain to BLE's and states at home she takes magnesium and potassium. MD notified and per request pt given potassium and magnesium supplements orally with some improvement. She is able to ambulate with a steady gait in the room without SOB. She is cleared for discharge home today with family. Son, daughter and at bedside asking appropriate questions and verbalize understanding of follow up plan (Labs on Monday and appointment with PCP on Monday) as well as medications and CHF management. She is escorted with family via w/ch to private vehicle to main entrance for discharge home this afternoon at approximately 1330 pm.
== END 2022-07-22 13:15 | disposition home or self-care (01) ==
LOC: ED 11:27 → AC 14:09
PROVIDERS: Internal Medicine; Admitting Provider Internal Medicine; Emergency Provider Emergency Medicine; PCP Student in an Organized Health Care Education/Training Program; Referring Provider Emergency Medicine; Visit Provider Internal Medicine
DX: I50.41 Acute combined systolic (congestive) and diastolic (congestive) heart failure (principal); F17.210 Nicotine dependence, cigarettes, uncomplicated; Z20.822 Contact with and (suspected) exposure to COVID-19
CPT/HCPCS: 0241U; 36415; 71045; 80048; 80053; 83605; 83880; 84443; 84484; 85025; 85610; 93005; 93010; 93306; 94640; 94760; 96372; 96374; 96375; 96376; 99284; G0378; J1650; J1940; J2930

== ENCOUNTER → 2022-07-25 09:23 | Outpatient (CLI) | payer MEDICARE, SELFPAY ==
[2022-07-21 16:12] VITALS: BMI 24.2
[2022-07-25 10:56] LABS: BUN Creatinine Ratio 30.3 (6-22); Blood Urea Nitrogen 30 mg/dL (7-17); Calcium 8.7 mg/dL (8.4-10.2); Carbon Dioxide 34 mmol/L (22-32); Chloride 96 mmol/L (98-107); Estimated Glomerular Filt Rate 58 mL/min (>60); Glucose 81 mg/dL (80-110); HEMOLYSIS < 15 (0-50); Potassium 4.2 mmol/L (3.4-5.1); Sodium 137 mmol/L (137-145)
== END ==
PROVIDERS: Referring Provider Internal Medicine; Visit Provider Internal Medicine
DX: I50.9 Heart failure, unspecified (principal)
CPT/HCPCS: 36415; 80048

== ENCOUNTER 2022-08-02 09:47 | Emergency (ER) | payer MEDICARE, SELFPAY ==
[2022-07-21 16:12] VITALS: BMI 24.2
[2022-08-02 09:52] VITALS: PULSE 77; RESP 20; TEMP 36.5; O2SAT 100; BMI 23.9
--- NOTE | 2022-08-02 10:11 | ED.HA ---
HPI - Headache General Chief Complaint: Headache Stated Complaint: severe headache T-4/SOB Time Seen by Provider: 08/02/22 10:04 Mode of arrival: Ambulatory History of Present Illness HPI Narrative: 77-year-old female with a history of hypertension, hyperlipidemia, new onset CHF and recent initiation of Lasix presents with a chief complaint of muscle spasms in her posterior neck that are contributing to a headache. She denies any dizziness, weakness or lightheadedness. She denies any chest pain or shortness of breath. She had been seen recently due to significantly swollen lower extremities and was started on Lasix. She states that her symptoms have worsened in the aftermath of starting Lasix. She states that she gets these spasming type episodes of pain every 30 seconds ago across the muscles of her neck and she is had headache and spasms like this for many years but states that it became more intense after starting Lasix. She does state that the swelling in her legs has improved on her current regimen Related Data Previous Rx's Medication Instructions Recorded aspirin 81 mg tablet,delayed 81 mg PO DAILY 30 days #30 tabs 07/22/22 release atorvastatin 40 mg tablet 40 mg PO BEDTIME 30 days #90 tabs 07/27/22 furosemide 20 mg tablet 20 mg PO BID #180 tabs 07/27/22 lisinopril 10 mg tablet 10 mg PO DAILY blood pressure #90 07/27/22 tabs metoprolol succinate 25 mg 25 mg PO DAILY #90 tabs 07/27/22 tablet,extended release 24 hr cyclobenzaprine 5 mg tablet 5 mg PO TID PRN muscle spasm #20 08/02/22 tabs Allergies Allergy/AdvReac Type Severity Reaction Status Date / Time Penicillins [PENICILLINS] Allergy Unknown Verified 08/02/22 09:54 shellfish derived Allergy Unknown Verified 08/02/22 09:54 Review of Systems Review of Systems Narrative: GENERAL: Denies chills, fatigue, malaise, fever, sweats. HEENT: Denies sinus pain, ear pain, sore throat, difficulty swallowing, dizziness. RESPIRATORY: Denies dyspnea, cough, wheezing, hemoptysis, sputum. CARDIOVASCULAR: Denies chest pain, palpitations, orthopnea, edema, GASTROINTESTINAL: Denies nausea, vomiting, abdominal pain, diarrhea, constipation, melena. : Denies dysuria, frequency, incontinence, hematuria, urinary retention. MUSCULOSKELETAL: denies weakness, joint pain, or bony pain SKIN: Denies rash, skin lesions, or other NEUROLOGIC: See HPI PSYCHIATRIC: No concerning psychosocial issues. 12 point review of systems is negative except for those stated above Patient History Medical History Asthma Tobacco dependence Social History household members: spouse Smoking Status: Current every day smoker alcohol intake: current Smoking Status: Current every day smoker alcohol intake frequency: holidays/special occasions only Substance Use Type: does not use Exam Narrative Exam Narrative: GENERAL: [77] year old patient appears stated age. Well-developed patient, in mild distress. HEAD: Atraumatic. Normocephalic. EYES: Pupils equal round and reactive. Extraocular motions intact. No scleral icterus. No injection or drainage. ENT: Nose without bleeding, purulent drainage. Throat without erythema, tonsillar hypertrophy or exudate. Airway patent. NECK: Trachea midline. Non tender, no pain with axial load CARDIOVASCULAR: Regular rate and rhythm without murmurs, gallops, or rubs. RESPIRATORY: Clear to auscultation. Breath sounds equal bilaterally. No wheezes, rales, or rhonchi. GASTROINTESTINAL: Abdomen soft, non-tender, nondistended. EXTREMITIES: No edema or joint tenderness. BACK: Nontender without deformity or crepitance. No flank tenderness. NEURO: AOx3. SKIN: No rash or erythema of visible areas Initial Vital Signs Initial Vital Signs: Vital Signs Temperature 97.7 F 08/02/22 09:52 Pulse Rate 77 08/02/22 09:52 Respiratory Rate 20 08/02/22 09:52 Pulse Oximetry 100 08/02/22 09:52 Oxygen Delivery Method 08/02/22 09:52 Course Orders Ordered: ED Orders 08/02/22 12:13 BMP [Basic Metabolic Panel] Stat CBC with manual diff [Complete Blood Count MAN DIFF] Stat Vital Signs Vital signs: Vital Signs - 8 hr 08/02/22 09:52 08/02/22 10:17 Temperature 97.7 F Pulse Rate 77 Respiratory Rate 20 Blood Pressure 142/70 H Pulse Oximetry 100 Oxygen Delivery Method Room Air MDM - Headache Lab Data 08/02/22 12:13 08/02/22 12:13 Labs: Lab Results 08/02/22 08/02/22 Range/Units 12:13 12:13 WBC 7.5 (4.5-11.0) X10^3/uL RBC 4.59 (4.0-5.2) X10^6/uL Hgb 12.8 (12.0-16.0) g/dL Hct 38.9 (36-46) % MCV 84.6 (80-100) fL MCH 27.8 (26-34) PG MCHC 32.9 (30-36) % RDW 14.1 (11.6-14.8) % Plt Count 230 (150-400) X10^3/uL Total Counted 100 Seg Neutrophils % 77.0 H (38-70) % Lymphocytes % (Manual) 20.0 L (25-45) % Monocytes % (Manual) 3.0 (2-11) % Neutrophils # (Manual) 5775 (1556-3990) /uL RBC Morphology Normal morphology Sodium 136 L (137-145) mmol/L Potassium 4.1 (3.4-5.1) mmol/L Chloride 97 L (98-107) mmol/L Carbon Dioxide 32 (22-32) mmol/L BUN 27 H (7-17) mg/dL Creatinine 1.57 H (0.52-1.04) mg/dL Estimated GFR 33 L (>60) mL/min BUN/Creatinine Ratio 17.2 (6-22) Glucose 96 (80-110) mg/dL Calcium 8.7 (8.4-10.2) mg/dL [facility] Narrative Medical decision making narrative: [] Multiple etiologies for patient's symptoms considered including, but not limited to: [] Prior Charts reviewed: Labs reviewed and interpreted by myself: Headache considerations include, but not limited to: Subarachnoid hemorrhage, but unlikely as patient denies sudden onset of pain, not worst of life, or neck pain Meningitis considered, but thought unlikely given lack of Brudzinski's, Kernig's sign, altered mental status or fever Giant cell arteritis considered, but thought unlikely given lack of unilateral findings, pain in congregational, vision change HTN Emergency considered, but thought unlikely given normal vitals Other serious diagnoses considered unlikely given lack of red flag findings such as sudden onset, increasing frequency, immunocompromise, systemic signs (fever, chills, stiff neck, or rash), focal neurologic findings, trauma, blood thinners, etc. Patient's symptoms improved over duration of stay with above-stated therapies. Findings and discharge diagnosis discussed with patient/family followed by verbalization of understanding Return precautions discussed with patient/family whom verbalize understanding of diagnosis and plan Discharge Plan Departure Patient Disposition: Home Clinical Impression: Muscle spasms of neck Activity Restrictions/Additional Instructions: *You have been diagnosed with [neck spasm resulting in headache and likely over-diuresis] *What to do: * as we discussed, please return your furosemide (Lasix) dosing to just once daily. Please continue to take your regular medications as directed. [ x] New medication prescriptions sent to your pharmacy: [[facility] ] [ ] New medication written as a paper prescription [ ] No new medications given *Please follow up with your primary care provider in 2-3 days, call for an appointment. Let them know you were seen in the Emergency Department and that we ask that you be seen in follow up. We will electronically transmit a record of today's note if your PCP is in our system *Return to Emergency Department if you should have any new, worsening or concerning symptoms, such as [fever greater than 101 F, shaking chills, worsening pain, persistent vomiting or other bothersome symptoms] Prescriptions: New cyclobenzaprine 5 mg tablet 5 mg PO TID PRN (Reason: muscle spasm) Qty: 20 0RF No Action atorvastatin 40 mg tablet 40 mg PO BEDTIME 30 Days Qty: 90 3RF furosemide 20 mg tablet 20 mg PO BID Qty: 180 3RF metoprolol succinate 25 mg tablet extended release 24 hr 25 mg PO DAILY Qty: 90 3RF lisinopril 10 mg tablet 10 mg PO DAILY Qty: 90 3RF aspirin 81 mg tablet,delayed release (DR/EC) 81 mg PO DAILY 30 Days Qty: 30 0RF Referrals: Haydee Guadarrama DO [Primary Care Provider] - Stand Alone Forms: Patient Portal/API
[2022-08-02 10:17] VITALS: BP 142/70
--- NOTE | 2022-08-02 10:43 | PC.NURSE ---
Pt recently here for SOB,dx with CHF. Pt states that she is breathing much better since then but is still SOB. Pt is having intermittent spasm pain in her head. Pt pain free at triage.
[2022-08-02 12:28] LABS: Hematocrit 38.9 % (36-46); Hemoglobin 12.8 g/dL (12.0-16.0); Mean Corpuscular HGB Conc 32.9 % (30-36); Mean Corpuscular Hemoglobin 27.8 PG (26-34); Mean Corpuscular Volume 84.6 fL (80-100); Platelet Count 230 X10^3/uL (150-400); Red Blood Cell Count 4.59 X10^6/uL (4.0-5.2); Red Cell Distribution Width 14.1 % (11.6-14.8); White Blood Cell Count 7.5 X10^3/uL (4.5-11.0)
[2022-08-02 12:40] LABS: Neutrophils Absolute Manual 5775 /uL (3000-5900); RBC Morphology Normal Morphology; Total Cells Counted 100
[2022-08-02 12:43] LABS: BUN Creatinine Ratio 17.2 (6-22); Blood Urea Nitrogen 27 mg/dL (7-17); Calcium 8.7 mg/dL (8.4-10.2); Carbon Dioxide 32 mmol/L (22-32); Chloride 97 mmol/L (98-107); Estimated Glomerular Filt Rate 33 mL/min (>60); Glucose 96 mg/dL (80-110); HEMOLYSIS < 15 (0-50); Potassium 4.1 mmol/L (3.4-5.1); Sodium 136 mmol/L (137-145)
--- NOTE | 2022-08-02 13:06 | PC.NURSE ---
pt left without signing DC instructions. pt spoke with Dr beard and is aware of RX sent to pharmacy.
== END 2022-08-02 13:08 | disposition home or self-care (01) ==
PROVIDERS: Emergency Provider Emergency Medicine; PCP Family Medicine
DX: M62.838 Other muscle spasm (principal); I50.9 Heart failure, unspecified; Z79.01 Long term (current) use of anticoagulants
CPT/HCPCS: 36415; 80048; 85025; 99281; 99283

== ENCOUNTER → 2023-03-16 10:43 | Outpatient (CLI) | payer MEDICARE, SELFPAY ==
[2022-07-21 16:12] VITALS: BMI 24.2
[2023-03-16 11:47] LABS: BUN Creatinine Ratio 17.3 (6-22); Blood Urea Nitrogen 26 mg/dL (7-17); Calcium 9.2 mg/dL (8.4-10.2); Carbon Dioxide 30 mmol/L (22-32); Chloride 102 mmol/L (98-107); Estimated Glomerular Filt Rate 35 mL/min (>60); Glucose 93 mg/dL (80-110); HEMOLYSIS < 15 (0-50); Potassium 4.9 mmol/L (3.4-5.1); Sodium 136 mmol/L (137-145)
== END ==
PROVIDERS: PCP Family Medicine; Referring Provider Nurse Practitioner; Visit Provider Nurse Practitioner
DX: I50.22 Chronic systolic (congestive) heart failure (principal); I42.8 Other cardiomyopathies
CPT/HCPCS: 36415; 80048